=== PATIENT | female | born 1985 | race Caucasian/White ===

== ENCOUNTER 2020-04-13 15:22 | Emergency (ER) | payer BC ==
[~2020-04-13] VITALS: Ht 165.1 cm; Wt 152.3 kg
--- NOTE | 2020-04-13 15:49 | PHYS DOC ---
Past Medical History Past Medical History: No Pertinent History (VIKKI PARKER DO) Past Surgical History: Tubal ligation (VIKKI PARKER DO) General Adult EDM: Chief Complaint: BACK PAIN OR INJURY HPI: HPI: Patient is a 34 year old female who presented to ER for evaluation of left flank pain started 1 hour ago. The pain radiated to her left lower abdominal area. Patient denies any nausea vomiting, no cough, no fever. Patient noticed some blood in her urine. Patient denies any history of kidney stone. Patient denies any injury to her back. Patient denies any history of COVID-19 infection, she denies being exposed to anybody who had COVID-19 infection. (VIKKI PARKER DO) Review of Systems: Review of Systems: Constitutional: Denies fever or chills. [] Eyes: Denies change in visual acuity. [] HENT: Denies nasal congestion or sore throat. [] Respiratory: Denies cough or shortness of breath. [] Cardiovascular: Denies chest pain or edema. [] GI: Denies abdominal pain, nausea, vomiting, bloody stools or diarrhea. Positive for left flank pain : Denies dysuria. Positive for blood in her urine. Musculoskeletal: Denies back pain or joint pain. [] Integument: Denies rash. [] Neurologic: Denies headache, focal weakness or sensory changes. [] Endocrine: Denies polyuria or polydipsia. [] Lymphatic: Denies swollen glands. [] Psychiatric: Denies depression or anxiety. [] (VIKKI PARKER DO) Heart Score: Risk Factors: Risk Factors: DM, Current or recent (<one month) smoker, HTN, HLP, family history of CAD, obesity. Risk Scores: Score 0 - 3: 2.5% MACE over next 6 weeks - Discharge Home Score 4 - 6: 20.3% MACE over next 6 weeks - Admit for Clinical Observation Score 7 - 10: 72.7% MACE over next 6 weeks - Early Invasive Strategies (VIKKI PARKER DO) Current Medications: Current Medications Medications (Trade) Dose Ordered Sig/Freida Start Time Stop Time Status Last Admin Dose Admin Morphine Sulfate (Morphine Sulfate) 4 mg 1X ONCE 04/13/20 15:45 04/13/20 15:46 UNV Ondansetron HCl (Zofran) 4 mg 1X ONCE 04/13/20 15:45 04/13/20 15:46 UNV Sodium Chloride 1,000 ml @ 1,000 mls/hr Q1H 04/13/20 15:45 04/13/20 16:44 UNV (VIKKI PARKER DO) Physical Exam: PE: Constitutional: Well developed, well nourished, mild acute distress due to pain, non-toxic appearance. Obese HENT: Normocephalic, atraumatic, bilateral external ears normal, oropharynx moist, no oral exudates, nose normal. [] Eyes: PERRLA, EOMI, conjunctiva normal, no discharge. [] Neck: Normal range of motion, no tenderness, supple, no stridor. [] Cardiovascular:Heart rate regular rhythm, no murmur [] Lungs & Thorax: Bilateral breath sounds clear to auscultation [] Abdomen: Bowel sounds normal, soft, no tenderness, no masses, no pulsatile masses. [] Skin: Warm, dry, no erythema, no rash. [] Back: No tenderness, left CVA tenderness to palpation. Extremities: No tenderness, no cyanosis, no clubbing, ROM intact, no edema. [] Neurologic: Alert and oriented X 3, normal motor function, normal sensory function, no focal deficits noted. [] Psychologic: Affect normal, judgement normal, mood normal. [] (VIKKI PARKER DO) PE: Constitutional: Well developed, well nourished, uncomfortable, non-toxic appearance HENT: Normocephalic, atraumatic Eyes: Conjunctiva normal, no discharge Neck: Normal range of motion, supple Lungs & Thorax: No respiratory distress, equal chest rise and fall Abdomen: Soft, no tenderness Skin: Warm, dry, no erythema, no rash Back: No tenderness, left CVA tenderness Extremities: No tenderness, ROM intact, no edema Neurologic: Alert and oriented X 3, no focal deficits noted Psychologic: Affect normal, judgment normal (GEN JONES DO) Current Patient Data: Labs: Laboratory Tests Test 04/13/20 15:52 White Blood Count 4.3 x10^3/uL Red Blood Count 4.31 x10^6/uL Hemoglobin 13.0 g/dL Hematocrit 38.0 % Mean Corpuscular Volume 88 fL Mean Corpuscular Hemoglobin 30 pg Mean Corpuscular Hemoglobin Concent 34 g/dL Red Cell Distribution Width 13.9 % Platelet Count 178 x10^3/uL Neutrophils (%) (Auto) 37 % Lymphocytes (%) (Auto) 45 % Monocytes (%) (Auto) 8 % Eosinophils (%) (Auto) 9 % Basophils (%) (Auto) 0 % Neutrophils # (Auto) 1.6 x10^3/uL Lymphocytes # (Auto) 1.9 x10^3/uL Monocytes # (Auto) 0.4 x10^3/uL Eosinophils # (Auto) 0.4 x10^3/uL Basophils # (Auto) 0.0 x10^3/uL Urine Collection Type Clean catch Urine Color Red Urine Clarity Cloudy Urine pH 7.5 Urine Specific [place] 1.015 Urine Protein 100 mg/dL Urine Glucose (UA) Negative mg/dL Urine Ketones (Stick) Trace mg/dL Urine Blood Large Urine Nitrite Negative Urine Bilirubin Negative Urine Urobilinogen Dipstick 0.2 mg/dL Urine Leukocyte Esterase Large Urine RBC Tntc /HPF Urine WBC 11-20 /HPF Urine Squamous Epithelial Cells Few /LPF Urine Bacteria Few /HPF Urine Mucus Mod /LPF Urine Test Negative Sodium Level 144 mmol/L Potassium Level 3.8 mmol/L Chloride Level 107 mmol/L Carbon Dioxide Level 25 mmol/L Anion Gap 12 Blood Urea Nitrogen 14 mg/dL Creatinine 0.8 mg/dL Estimated GFR (Cockcroft-Gault) 83.1 BUN/Creatinine Ratio 18 Glucose Level 93 mg/dL Calcium Level 8.4 mg/dL Total Bilirubin 0.5 mg/dL Aspartate Amino Transf (AST/SGOT) 13 U/L Alanine Aminotransferase (ALT/SGPT) 22 U/L Alkaline Phosphatase 55 U/L Total Protein 7.2 g/dL Albumin 3.8 g/dL Albumin/Globulin Ratio 1.1 Lipase 100 U/L Current Medications Medications (Trade) Dose Ordered Sig/Freida Route PRN Reason Start Time Stop Time Status Last Admin Dose Admin Sodium Chloride 1,000 ml @ 1,000 mls/hr Q1H IV 04/13/20 16:00 04/13/20 16:59 DC 04/13/20 16:00 Ondansetron HCl (Zofran) 4 mg 1X ONCE IVP 04/13/20 16:00 04/13/20 16:01 DC 04/13/20 16:00 Morphine Sulfate (Morphine Sulfate) 4 mg 1X ONCE IV 04/13/20 16:00 04/13/20 16:01 DC 04/13/20 16:00 Ketorolac Tromethamine (Toradol 30mg Vial) 30 mg 1X ONCE IVP 04/13/20 16:30 04/13/20 16:31 DC 04/13/20 16:49 Levofloxacin/ Dextrose 150 ml @ 100 mls/hr 1X ONCE IV 04/13/20 16:30 04/13/20 17:59 04/13/20 16:57 Fentanyl Citrate (Fentanyl 2ml Vial) 100 mcg 1X ONCE IVP 04/13/20 17:00 04/13/20 17:01 DC 04/13/20 17:04 (VIKKI PARKER DO) EKG: EKG: [] (VIKKI PARKER DO) Radiology/Procedures: Radiology/Procedures: [facility] [address] [place] [address] IMAGING REPORT Signed PATIENT: SHWETA DAVILA ACCOUNT: [id number] : 1985 LOCATION: ER AGE: 34 SEX: F EXAM STATUS: REG ER ORD. PHYSICIAN: VIKKI PARKER DO REASON: left flank pain PROCEDURE: CT ABDOMEN PELVIS WO CONTRAST INDICATION: Reason: left flank pain / Spl. Instructions: / History: . COMPARISON: None. TECHNIQUE: Axial CT images obtained through the abdomen and pelvis without contrast. One or more of the following individualized dose reduction techniques were utilized for this examination: 1. Automated exposure control; 2. Adjustment of the mA and/or kV according to patient size; 3. Use of iterative reconstruction technique. FINDINGS: Abdominal aorta is not aneurysmal. Fat-containing umbilical hernia. Prominent lymph nodes in the groin. No intrahepatic bile duct dilation. No peripancreatic fluid collection. Spleen mildly prominent. Left-sided hydronephrosis with 9 mm left ureteropelvic junction stone. There are multiple lymph nodes within the retroperitoneum which are borderline enlarged. Urinary bladder is decompressed. Intrauterine device is seen within the uterus. No right-sided hydronephrosis. No periappendiceal inflammatory changes. No dilated loops of bowel to suggest obstruction. Mild degenerative changes of the spine. Small pericardial fluid. IMPRESSION: * Left-sided hydronephrosis with adjacent edema and left ureteropelvic junction stone. Electronically signed by: Jessica Stein MD (04/13/2020 4:58 PM) [id number] DICTATED and SIGNED BY: JESSICA STEIN MD DATE: 04/13/20 [id number] (VIKKI PARKER DO) Course & Med Decision Making: Course & Med Decision Making Pertinent Labs and Imaging studies reviewed. (See chart for details) Patient is a 34-year-old female who presented to ER due to left flank pain with hematuria. She was found to have 9 mm stone at the left ureteropelvic junction associated with left hydronephrosis. Patient also had evidence of urinary tract infection. Patient has received multiple different types of pain medication in ER however her pain was not controlled. Patient will need to be admitted to hospital for IV pain medication and IV antibiotic. There is no urology service at this hospital, informed patient that there is urology service at our sister hospital, [facility] in [facility], however patient would like to be transferred to [facility] due to closer to home and she had previous care over there in the past. Call [facility] Access center: , discussed with SARA Mendoza who informed this physician that [facility] would not accept any positive Covid patient, would like patient to have a RAPID COVID TEST before proceeding with the transfer process. Care of the patient was transferred to the incoming physician at shift change Dr. Gen Jones. (VIKKI PARKER DO) Course & Med Decision Making 1800-signout received from Dr. Parker for patient with large UPJ stone and UA with signs of infection. Patient requesting transfer to [facility] due to need for urology evaluation and treatment. Labs reviewed. Patient's pain and empiric antibiotic previously provided. CT reviewed. Patient pending a rapid COVID test. Patient seen and evaluated by myself. 1840- Notified [facility] transfer center regarding negative COVID test. Awaiting accepting physician for transfer to [facility]. 190- [facility] transfer center called back. Discussed case with Dr. Herrera (resident with Dr. Anahi Wall, hospitalist) who is accepting of transfer. Patient stable for transfer to [facility] for further evaluation and treatment and Urology consultation. Discussed findings and plan with patient, who acknowledges understanding and agreement. (GEN JONES DO) [place] Disclaimer: José Luis Disclaimer: This electronic medical record was generated, in whole or in part, using a voice recognition dictation system. (VIKKI PARKER DO) Departure Departure Impression: Primary Impression: Left renal stone Additional Impressions: Hydronephrosis of left kidney UTI (urinary tract infection) Qualified Codes: N39.0 - Urinary tract infection, site not specified; R31.9 - Hematuria, unspecified Disposition: 02 DC/TRF OTHER SHORT TERM HOS ([facility]) Condition: STABLE Referrals: ANGÉLICA KNOX MD (PCP) VIKKI PARKER DO Apr 13, 2020 15:49 GEN JONES DO Apr 13, 2020 18:52
[2020-04-13] MEDS ORDERED: IV NORMAL SALINE 1000ML BAG 1,000 ML IV SCH (16:00)
[2020-04-13] MEDS ORDERED: MORPHINE SULFATE 4 MG/ML VIAL. IV ONE (16:00)
[2020-04-13] MEDS ORDERED: ONDANSETRON PF 4 MG/2 ML VIAL. IVP ONE (16:00)
[2020-04-13 16:01] LABS: BASO % 0 % (0-3); EOS # 0.4 x10^3/uL (0.0-0.7); EOS % 9 % (0-3); LYMPH # 1.9 x10^3/uL (1.0-4.8); LYMPH % 45 % (24-48); MEAN CORPUSCULAR HEMOGLOBIN 30 pg (25-35); MEAN CORPUSCULAR HGB CONC 34 g/dL (31-37); MEAN CORPUSCULAR VOLUME 88 fL (79-100); MONO # 0.4 x10^3/uL (0.0-1.1); MONO % 8 % (0-9); NEUT # 1.6 x10^3/uL (1.8-7.7); NEUT % 37 % (31-73); PLATELET COUNT 178 x10^3/uL (140-400); RED BLOOD COUNT 4.31 x10^6/uL (3.50-5.40); RED CELL DISTRIBUTION WIDTH 13.9 % (11.5-14.5); WHITE BLOOD COUNT 4.3 x10^3/uL (4.0-11.0)
[2020-04-13 16:02] LABS: BILIRUBIN,URINE NEGATIVE (NEG); COLOR,URINE RED; NITRITE,URINE NEGATIVE (NEG); PH,URINE 7.5 (<5.0-8.0); PROTEIN,URINE 100 mg/dL (NEG-TRACE); UROBILINOGEN,URINE 0.2 mg/dL (0.2 mg/dL)
[2020-04-13 16:10] LABS: CLARITY,URINE CLOUDY
[2020-04-13 16:11] LABS: RBC,URINE TNTC /HPF (0-2)
[2020-04-13 16:12] LABS: U PREG PATIENT NEGATIVE (NEG)
[2020-04-13 16:15] LABS: BACTERIA,URINE FEW /HPF (0-FEW)
[2020-04-13] MEDS ORDERED: KETOROLAC 30 MG/ML VIAL. IVP ONE (16:30)
[2020-04-13 16:44] LABS: ALBUMIN 3.8 g/dL (3.4-5.0); ALBUMIN/GLOBULIN RATIO 1.1 (1.0-1.7); CALCIUM 8.4 mg/dL (8.5-10.1); CREATININE 0.8 mg/dL (0.6-1.0); GFR 83.1; POTASSIUM 3.8 mmol/L (3.5-5.1); TOTAL BILIRUBIN 0.5 mg/dL (0.2-1.0); TOTAL PROTEIN 7.2 g/dL (6.4-8.2)
[2020-04-13] MEDS ORDERED: fentaNYL PF VIAL 100 MCG/2 ML VIAL IVP ONE (17:00)
--- NOTE | 2020-04-13 17:01 | RAD ---
INDICATION: Reason: left flank pain / Spl. Instructions: / History: . COMPARISON: None. TECHNIQUE: Axial CT images obtained through the abdomen and pelvis without contrast. One or more of the following individualized dose reduction techniques were utilized for this examinat ion: 1. Automated exposure control; 2. Adjustment of the mA and/or kV according to patient size; 3 . Use of iterative reconstruction technique. FINDINGS: Abdominal aorta is not aneurysmal. Fat-containing umbilical hernia. Prominent lymph nodes in the groin. No intrahepatic bile duct dilation. No peripancreatic fluid collection. Spleen mildly prominent. Left-sided hydronephrosis with 9 mm left ureteropelvic junction stone. There are multiple lymph nodes within the retroperitoneum which are borderline enlarged. Urinary bladder is decompressed. Intrauterine device is seen within the uterus. No right-sided hydronephrosis. No periappendiceal inflammatory changes. No dilated loops of bowel to suggest obstruction. Mild degenerative changes of the spine. Small pericardial fluid. IMPRESSION: * Left-sided hydronephrosis with adjacent edema and left ureteropelvic junction stone. Electronically signed by: Lavon Ware MD (04/13/2020 4:58 PM) [id number]
[2020-04-13] MEDS ORDERED: HYDROmorphone 2 MG/ML VIAL ONE (17:37)
[2020-04-13] MEDS ORDERED: HYDROmorphone 2 MG/ML VIAL IVP ONE ×3 (17:45→20:00)
[2020-04-13 19:44] VITALS: BP 155/86
== END 2020-04-13 20:34 | disposition short-term general hospital (02) ==
LOC: ER 15:22
DX: N13.2 Hydronephrosis with renal and ureteral calculous obstruction (principal); Z20.822 Contact with and (suspected) exposure to COVID-19; N39.0 Urinary tract infection, site not specified; R31.9 Hematuria, unspecified; R10.32 Left lower quadrant pain; Z98.51 Tubal ligation status
CPT/HCPCS: 36415; 74176; 80053; 81001; 81025; 83690; 85025; 87086; 87426; 96361; 96365; 96375; 96376; 99285; C9803; J1170; J1885; J1956; J2270; J2405; J3010; J7030; U0003